=== PATIENT | female | born 1960 | race Caucasian/White ===

== ENCOUNTER 2017-04-25 20:45 | Inpatient (IN) | payer BC ==
[~2017-04-25] VITALS: Ht 162.6 cm; Wt 87.4 kg
[~2017-04-25 20:45] MED LIST: AMBIEN10 MG PO; ANTIVERT25 MG PO; ATIVAN0.5 MG PO; CELEBREX200 MG PO; COQ-10100 MG PO; CYANOCOBALAM1000 MCG PO; MAGNESIUM250 MG PO; NEURONTIN300 MG PO; PERCOCET 5/31 TABLET PO; PREVACID30 MG PO; TOPROL XL25 MG PO; VIIBRYD40 MG PO; VITAMIN D33000 UNIT PO; VIVELLE-DOT0.05 MG TD; ZANAFLEX4 M1 PO; ZOCOR40 MG PO
[2017-04-26 08:12] VITALS: BP 119/69
[2017-04-26 16:01] VITALS: BP 129/71
[2017-04-26 20:23] VITALS: BP 91/50
[2017-04-26 23:55] VITALS: BP 108/65
[2017-04-27] VITALS (7 sets, daily range): BP systolic 106–126; BP diastolic 56–72
[2017-04-28] MEDS ORDERED: ZANAFLEX4 M1 PO (08:38)
[2017-04-28] MEDS ORDERED: PERCOCET 5/31 TABLET PO (08:38)
[2017-04-28 08:42] VITALS: BP 118/70
== END 2017-04-28 09:57 | disposition home or self-care (01) | DRG 460 ==
LOC: ENRESERV 20:45 → 2SOUTH 04-26 07:36 → ENRESERV 04-26 14:41 → 2SOUTH 04-26 15:12 → 3EAST 04-26 15:53 → 2SOUTH 04-26 17:29 → 3EAST 04-28 09:57
DX: M48.061 Spinal stenosis, lumbar region without neurogenic claudication (principal); M51.16 Intervertebral disc disorders with radiculopathy, lumbar region; E78.2 Mixed hyperlipidemia; K21.0 Gastro-esophageal reflux disease with esophagitis; F43.23 Adjustment disorder with mixed anxiety and depressed mood; G47.00 Insomnia, unspecified; I49.3 Ventricular premature depolarization; E66.9 Obesity, unspecified; Z68.33 Body mass index [BMI] 33.0-33.9, adult; Z98.1 Arthrodesis status; Z87.891 Personal history of nicotine dependence; Z86.010 Personal history of colon polyps
CPT/HCPCS: 72100; 86850; 86900; 86901; C1713; C1821; J0690; J1100; J1170; J2250; J2405; J2930; J3010; J3480; S0020